=== PATIENT | female | born 1965 | race Caucasian/White ===

== ENCOUNTER 2019-07-08 15:51 | Observation (INO) ==
[2019-07-08] MEDS ORDERED: ASPIRIN PR ONE (15:57)
[2019-07-08] MEDS ORDERED: ASPIRIN PO ONE (15:57)
[2019-07-08] MEDS ORDERED: NORFLEX IV ONE (16:18)
[2019-07-08] MEDS ORDERED: LABETALOL IV ONE (16:18)
[2019-07-08] MEDS ORDERED: TORADOL IV ONE (16:18)
[2019-07-08] MEDS ORDERED: ZOFRAN IV ONE ×3 (16:18→20:13)
[2019-07-08 16:25] LABS: BASO# 0.02 X1000 (0.0-0.2); BASO% 0.2 % (0.0-0.8); EOS# 0.08 X1000 (0.0-0.7); HEMATOCRIT 39.5 % (37.0-47.0); IMM GRAN# 0.01 X1000 (0.0-0.04); IMM GRAN% 0.1 % (0.0-0.5); LYMPH# 2.98 X1000 (1.2-3.4); LYMPH% 36.4 % (20.5-51.1); MCH 28.2 PG (27-31); MCHC 32.9 g/dL (33-37); MCV 85.7 FL (81-99); MONO# 1.01 X1000 (0.11-0.59); MONO% 12.3 % (1.7-9.3); MPV 9.1 FL (7.4-10.4); NEUT# 4.08 X1000 (1.4-6.5); PLT 327 X1000 (130-400); RBC 4.61 XMIL (4.2-5.4); RDW 12.7 % (11.5-14.5); WBC 8.18 X1000 (4.8-10.8)
--- NOTE | 2019-07-08 16:35 | Diag Imaging Result Doc PS360 ---
EXAM: CHEST-2 VIEWS 07/08/2019 HISTORY: chest pain TECHNIQUE: PA and lateral chest COMMENT: The heart size is at the upper limits of normal. The lungs are clear and unchanged in appearance compared to 10/13/2018. There may be some hyperinflation of the lungs consistent with COPD. IMPRESSION: Borderline cardiomegaly and COPD. Electronically signed by Arron Muniz 07/08/2019 4:33 PM
[2019-07-08 16:37] LABS: INR 0.89; PROTIME 12.5 Seconds (11.0-16.0)
[2019-07-08 16:38] LABS: PTT 32.1 Seconds (22.3-41.8)
--- NOTE | 2019-07-08 16:38 | EKG Report ---
Test Performed on : 07/08/2019 4:01:44 PM Test Reason : chest pain Blood Pressure : / mmHG Vent. Rate : 089 BPM Atrial Rate : 089 BPM P-R Int : 160 ms QRS Dur : 076 ms QT Int : 350 ms P-R-T Axes : 066 014 006 degrees QTc Int : 425 ms Normal sinus rhythm. Nonspecific ST abnormality Abnormal ECG When compared with ECG of 22-AUG-2016 22:58, T wave amplitude has increased in Anterior leads Unconfirmed Result
[2019-07-08 16:45] LABS: ALBUMIN 4.5 g/dL (3.5-5.0); CALCIUM 9.9 mg/dL (8.8-10.2); POTASSIUM 3.9 mmol/L (3.5-5.1); TOTAL BILIRUBIN 0.5 mg/dL (0.20-1.00); TOTAL PROTEIN 7.7 g/dL (6.3-8.3)
[2019-07-08 17:13] LABS: CK INDEX 2.8 (0.0-2.5); CK-MB 5.35 ng/mL (0.0-5.0)
[2019-07-08] MEDS ORDERED: APRESOLINE IV ONE (18:12)
[2019-07-08] MEDS ORDERED: MORPHINE IV ONE (18:12)
--- NOTE | 2019-07-08 18:12 | PROVIDER DOCUMENTATION ---
This chart was entered by Chantelle Agudelo Scribe, acting as scribe for Ryland Serrano MD. HPI-Chest Pain - General Source: patient - History of Present Illness-CP Location: reports: other (left side) Chest Pain Radiation: reports: neck (left) Quality of Pain: reports: aching Severity in ED: mild Onset/Duration: 5 days ago Timing: still present Context/Activities at Onset: reports: light activity Modifying Factors: worse with: movement Associated Symptoms: reports: denies symptoms Similar Symptoms Previously?: Yes Recently Seen Here or By Another Healthcare Provider: No <Ryland Serrano - Last Filed: 07/08/19 18:18> <Sandeep Joseph - Last Filed: 07/08/19 22:15> - General Chief Complaint: Chest Pain Stated Complaint: CP-L SHOULDER PAIN Time Seen by Provider: 07/08/19 16:09 Allergies/Adverse Reactions: Patient Allergies Allergy/AdvReac Type Severity Reaction Status Date / Time No Known Allergies Allergy Verified 10/13/18 15:02 Home Medications: Home Medication List Medication Instructions Recorded Confirmed Last Taken Type Losartan/Hctz [Hyzaar 100/12.5 mg 1 tab PO DAILY 10/13/18 10/13/18 10/13/18 History Tab] Methylprednisolone [Medrol Dosepak] 4 mg PO DIRECTED #1 pkg 10/13/18 Unknown Rx Naproxen Sodium [Anaprox Ds] 550 mg PO Q12H PRN #20 tab 10/13/18 Unknown Rx - History of Present Illness-CP Nature of Presenting Problem: Patient is a 54 year old female who presents with left side chest pain. States chest pain radiates to left side neck. Reports pain has been present for 5 days. Denies nausea, vomiting, shortness of breath and diaphoresis. (Ryland Serrano) Review of Systems - Adult - REVIEW OF SYSTEMS - ADULT Constitutional: reports: no symptoms reported Eyes: reports: no symptoms reported Ears, Nose, Mouth & Throat: reports: no symptoms reported Cardiovascular: reports: see HPI, chest pain. denies: irregular heart rate, palpitations Respiratory: reports: no symptoms reported. denies: cough, shortness of breath, wheezing Gastrointestinal: reports: no symptoms reported. denies: abdominal pain, nausea, vomiting Genitourinary: reports: no symptoms reported Musculoskeletal: reports: see HPI, neck pain (left). denies: back pain, muscle aches Integumentary: reports: no symptoms reported Neurological: reports: no symptoms reported Psychiatric: reports: no symptoms reported Endocrine: reports: no symptoms reported Hematologic/Lymphatic: reports: no symptoms reported Allergic/Immunologic: reports: no symptoms reported All Other Systems: Reviewed and Negative <Ryland Serrano - Last Filed: 07/08/19 18:18> Past History - Adult - PAST MEDICAL HISTORY-ADULT Review of Records: reports: Old Records Reviewed, Nursing Assessment Review, Medications Reviewed, Social history reviewed & non-contributory. Major Childhood Illnesses: reports: denies history Cardiovascular: reports: HTN Respiratory: reports: denies history Gastrointestinal: reports: GERD Obstetrical/Gynecological: reports: denies history Genitourinary: reports: denies history Musculoskeletal: reports: denies history Neurological: reports: headaches/migraines Psychiatric: reports: denies history Endocrine/Immune: reports: denies history Other Conditions: reports: denies history - PRIOR SURGERIES/PROCEDURES Surgical/Procedure History: reports: BTL - PRIOR HOSPITALIZATIONS Prior Hospitalizations: reports: none - IMMUNIZATION STATUS Childhood Immunizations: See Nurse Assessment Flu Vaccine: See Nurse Assessment - FAMILY HISTORY Family History: reviewed, not pertinent - SOCIAL HISTORY Smoking: denies Substance Use: denies <Ryland Serrano - Last Filed: 07/08/19 18:18> Physical Exam-General - PHYSICAL EXAM-ADULT Initial Vital Signs Reviewed: Yes - CONSTITUTIONAL General Appearance: alert, no apparent distress. negative: lethargic - HEAD, EARS, NOSE, MOUTH & THROAT HENMT: normocephalic/atraumatic, moist mucous membranes. negative: angioedema - RESPIRATORY Respiratory: lungs clear, normal breath sounds, other (left anterior chest wall tenderness. reproducible with palpation). negative: crackles, stridor, wheezing - CARDIOVASCULAR Cardiovascular: normal peripheral pulses, regular rate, rhythm. negative: tachycardia - GASTROINTESTINAL (ABDOMEN) Abdominal Exam: normal bowel sounds, non tender, soft. negative: guarding, rigid - MUSCULOSKELETAL Extremity: non-tender, normal inspection. negative: deformity, erythema - SKIN Integumentary: normal color, normal turgor, warm/dry. negative: diaphoresis, rash - NEUROLOGIC Neurologic: grossly normal. negative: aphasia, facial droop - PSYCHIATRIC Psych/Mental Status: normal mood/affect, oriented x 3. negative: anxious <Ryland Serrano - Last Filed: 07/08/19 18:18> - HEART Score HEART Score: History: Slightly Suspicious HEART Score: ECG: Normal HEART Score: Age: 45-65 Years HEART Score: Risk Factors for Atherosclerotic Disease: 1 or 2 Risk Factors HEART Score: Troponin: < or = Normal Limit Total HEART Score:: 2 <Ryland Serrano - Last Filed: 07/08/19 18:18> Progress - PLAN OF CARE/RESULTS Result Diagrams: 07/08/19 16:05 07/08/19 16:05 - REASSESSMENT Reassessment #1 Time Reassessed: 18:11 Status: improving (minimally improved with pain meds. Given labetalol IV for HTN. Will check second set of CE as CKMB was a little elevated, but troponin was negative.) - EKG 1 Time of EKG reading by physician:: 16:01 EKG Read and Signed by:: Ryland Serrano EKG Interpretation (*Must complete 3 of following elements*): Abnormal Rate: 89 Rhythm: normal sinus rhythm [place]: normal [place] Interval: normal Comments: nonspecific ST abnormality. - XRAY 1 XRAY Study: Chest Impression: Abnormal, See EMR Report ( EXAM: CHEST-2 VIEWS 07/08/2019 HISTORY: chest pain TECHNIQUE: PA and lateral chest COMMENT: The heart size is at the upper limits of normal. The lungs are clear and unchanged in appearance compared to 10/13/2018. There may be some hyperinflation of the lungs consistent with C OPD. IMPRESSION: Borderline cardiomegaly and COPD. Electronically signed by Arron Muniz 07/08/2019 4:33 PM 07/08/19 1633 Interpreting Physician: Arron Muniz MD Dictated Date/Time: 07/08/19 1632 cc: Ryland Serrano MD; None,PCP) - CHANGE OF SHIFT REPORT (ED Provider) 1 Report Given and Care Transferred to:: Jake Time of Transfer: 19:00 Items Pending: Labs (second set of Arthur), CT/MRI Results, Pain Control <Ryland Serrano - Last Filed: 07/08/19 18:18> - PLAN OF CARE/RESULTS Result Diagrams: 07/08/19 16:05 07/08/19 16:05 - CONSULTS/PCP/HOSPITALIST Notification #1 *Consult/PCP/Hospitalist*: Dr Bess, Cardiology Time Discussed: 22:13 (Transfer to [facility]) <Sandeep Joseph - Last Filed: 07/08/19 22:15> - PLAN OF CARE/RESULTS Progress/Plan/Lab Results: Vital Signs - 8 hr 07/08/19 15:52 07/08/19 16:32 07/08/19 21:01 Temperature 97.7 F 98.3 F Pulse Rate 87 66 52 L Respiratory Rate 20 20 10 L Blood Pressure 197/124 151/94 66/42 O2 Sat by Pulse Oximetry 99 98 93 L Laboratory Results - last 24 hr 07/08/19 07/08/19 07/08/19 16:05 16:05 16:05 WBC 8.18 RBC 4.61 Hgb 13.0 Hct 39.5 MCV 85.7 MCH 28.2 MCHC 32.9 L RDW Std Deviation 12.7 Plt Count 327 MPV 9.1 Immature Gran % (Auto) 0.1 Neut % (Auto) 50.0 Lymph % (Auto) 36.4 [place] % (Auto) 12.3 H Eos % (Auto) 1.0 Baso % (Auto) 0.2 Immature Gran # (Auto) 0.01 Neut # (Auto) 4.08 Lymph # (Auto) 2.98 [place] # (Auto) 1.01 H Eos # (Auto) 0.08 Baso # (Auto) 0.02 PT INR PTT (Actin FS) Sodium 139 Potassium 3.9 Chloride 104 Carbon Dioxide 24 L Anion Gap 11 BUN 15 Creatinine 1.0 H Estimated GFR/1.73 m2 57 BUN/Creatinine Ratio 15 Glucose 97 Calculated Osmolality 278 Calcium 9.9 Total Bilirubin 0.50 AST 23 ALT 26 Alkaline Phosphatase 109 H Creatine Kinase 192 H Creatine Kinase Index 2.8 H CK-MB (CK-2) 5.35 H Troponin T Eeo-D-Ixhutjddrpz Pept 25 Total Protein 7.7 Albumin 4.5 Globulin 3.0 Albumin/Globulin Ratio 1.0 07/08/19 07/08/19 07/08/19 16:05 16:05 19:00 WBC RBC Hgb Hct MCV MCH MCHC RDW Std Deviation Plt Count MPV Immature Gran % (Auto) Neut % (Auto) Lymph % (Auto) [place] % (Auto) Eos % (Auto) Baso % (Auto) Immature Gran # (Auto) Neut # (Auto) Lymph # (Auto) [place] # (Auto) Eos # (Auto) Baso # (Auto) PT 12.5 INR 0.89 PTT (Actin FS) 32.1 Sodium Potassium Chloride Carbon Dioxide Anion Gap BUN Creatinine Estimated GFR/1.73 m2 BUN/Creatinine Ratio Glucose Calculated Osmolality Calcium Total Bilirubin AST ALT Alkaline Phosphatase Creatine Kinase 186 H Creatine Kinase Index 2.5 CK-MB (CK-2) 4.74 Troponin T < 0.010 Nse-L-Pptbaasqypl Pept Total Protein Albumin Globulin Albumin/Globulin Ratio 07/08/19 19:00 WBC RBC Hgb Hct MCV MCH MCHC RDW Std Deviation Plt Count MPV Immature Gran % (Auto) Neut % (Auto) Lymph % (Auto) [place] % (Auto) Eos % (Auto) Baso % (Auto) Immature Gran # (Auto) Neut # (Auto) Lymph # (Auto) [place] # (Auto) Eos # (Auto) Baso # (Auto) PT INR PTT (Actin FS) Sodium Potassium Chloride Carbon Dioxide Anion Gap BUN Creatinine Estimated GFR/1.73 m2 BUN/Creatinine Ratio Glucose Calculated Osmolality Calcium Total Bilirubin AST ALT Alkaline Phosphatase Creatine Kinase Creatine Kinase Index CK-MB (CK-2) Troponin T < 0.010 Ztc-I-Ktffmbvczaa Pept Total Protein Albumin Globulin Albumin/Globulin Ratio Orders Category Date Time Status Cardiac Monitoring DIRECTED Care 07/08/19 15:58 Active Nursing- Obtain EKG once Care 07/08/19 18:09 Active Oxygen Therapy- ED Nursing DIRECTED Care 07/08/19 15:58 Active Saline Loc NOW Care 07/08/19 15:58 Active CHEST-2 VIEWS [RAD] Stat Exams 07/08/19 15:58 Completed CTA [CT ANGIOGRM PULMONARY ARTERIES] [CT] Stat Exams 07/08/19 16:17 Completed CBC WITH ELECTRONIC DIFF [HEME] Stat Lab 07/08/19 16:05 Completed CK PROFILE [SP CHEM] Stat Lab 07/08/19 16:05 Completed CK PROFILE [SP CHEM] Stat Lab 07/08/19 19:00 Completed COMPREHENSIVE METABOLIC PANEL [CHEM] Stat Lab 07/08/19 16:05 Completed PRO B-NATRIURETIC PEPTIDE Stat Lab 07/08/19 16:05 Completed PROTIME WITH INR [COAG] Stat Lab 07/08/19 16:05 Completed PTT [COAG] Stat Lab 07/08/19 16:05 Completed TROPONIN T Stat Lab 07/08/19 16:05 Completed TROPONIN T Stat Lab 07/08/19 19:00 Completed Aspirin Med 07/08/19 15:57 Discontinued 300 mg WI NOW ONE Aspirin Med 07/08/19 15:57 Discontinued 325 mg PO NOW ONE Hydralazine [Apresoline] Med 07/08/19 18:12 Discontinued 10 mg IV NOW ONE Ketorolac [Toradol] Med 07/08/19 16:18 Discontinued 30 mg IV NOW ONE Labetalol Med 07/08/19 16:18 Discontinued 20 mg IV NOW ONE Morphine Med 07/08/19 18:12 Discontinued 4 mg IV NOW ONE Ondansetron [Zofran] Med 07/08/19 16:18 Discontinued 4 mg IV NOW ONE Ondansetron [Zofran] Med 07/08/19 18:12 Discontinued 4 mg IV NOW ONE Ondansetron [Zofran] Med 07/08/19 20:13 Discontinued 4 mg IV NOW ONE Orphenadrine [Norflex] Med 07/08/19 16:18 Discontinued 60 mg IV NOW ONE CP/SOB/Palp >45 yrs of Age Stat Oth 07/08/19 15:57 Ordered EKG [EKG] Stat Ther 07/08/19 15:58 Draft EKG [EKG] Stat Ther 07/08/19 18:09 Ordered Departure - Departure Certified Medical Emergency: Emergent - Critical Care Note This patient required my direct & personal management of CC.: Yes Total Time (mins): 45 Critical Care Statement: This patient required my direct personal management to treat or rule out processes, the absence of which, could potentiallly result in sudden, clinically significant life or limb threatening deterioration. <Ryland Serrano - Last Filed: 07/08/19 18:18> - Departure Date of Disposition Decision: 07/08/19 Time of Disposition Decision: 22:14 Certified Medical Emergency: Emergent <Sandeep Joseph - Last Filed: 07/08/19 22:15> - Departure DIAGNOSIS: Chest pain of uncertain etiology, Hypertensive urgency Disposition: [facility] 02 Condition: Fair Referrals and Follow-Ups: None,PCP [Primary Care Provider] - Attestation - Physician/ YASMIN Attestation Patient care was provided by Advanced Practice Provider:: No The physician spent face to face time with patient:: Yes Advanced Practice Provider documentation review:: Supervising physician onsite and consulted in the evaluation and care of this patient. The physician did have a face to face encounter with the patient. <Ryland Serrano - Last Filed: 07/08/19 18:18> - Physician/ YASMIN Attestation Patient care was provided by Advanced Practice Provider:: No The physician spent face to face time with patient:: Yes Advanced Practice Provider documentation review:: Supervising physician onsite and consulted in the evaluation and care of this patient. The physician did have a face to face encounter with the patient. <Sandeep Joseph - Last Filed: 07/08/19 22:15> This chart was documented by the indicated scribe, (Chantelle Agudelo Scribe) and accurately reflects the services I performed and decisions made by , Ryland Serrano MD, as attested by the provider's signature.
--- NOTE | 2019-07-08 18:15 | Diag Imaging Result Doc PS360 ---
EXAM: CT ANGIOGRM PULMONARY ARTERIES 07/08/2019 HISTORY: left sided CP TECHNIQUE: This exam was performed using automated exposure control, adjustment of mA or kV according to patient size, and/or use of iterative reconstruction technique. COMMENT: 3-D MIPS were performed. There are no filling defects in the pulmonary arteries. There is some apparent adrenal hyperplasia particularly on the left. The aorta is normal in caliber without evidence of dissection. There is some fluid in the esophagus which may be indicative of reflux. There is minimal bibasilar atelectasis. No focal consolidation to suggest pneumonia is present. The regional skeleton appears to be intact. There are no abnormal fluid collections. IMPRESSION: No evidence of pulmonary emboli. Possible gastroesophageal reflux. Electronically signed by Arron Muniz 07/08/2019 6:13 PM
[2019-07-08 21:48] LABS: CK INDEX 2.5 (0.0-2.5); CK-MB 4.74 ng/mL (0.0-5.0)
--- NOTE | 2019-07-08 22:11 | ED EKG INTERP ---
This chart was entered by Susan Hensley Scribe, acting as scribe for Sandeep Joseph DO. EKG Interpretation - EKG Time of EKG reading by physician:: 18:53 EKG Read and Signed by:: Sandeep Joseph EKG Interpretation (*Must complete 3 of following elements*): Abnormal (NSR, Septal infarct, age undetermined. Abnormal ECG) Rate: 63 Rhythm: NSR [place]: normal QRS: normal Attestation - Physician/ YASMIN Attestation Patient care was provided by Advanced Practice Provider:: No The physician spent face to face time with patient:: Yes Advanced Practice Provider documentation review:: Supervising physician onsite and consulted in the evaluation and care of this patient. The physician did have a face to face encounter with the patient. This chart was documented by the indicated scribe, (Susan Hensley Scribe) and accurately reflects the services I performed and decisions made by Jake hoff Thomas E., DO, as attested by the provider's signature.
[2019-07-08] MEDS ORDERED: TYLENOL PO PRN (22:34)
[2019-07-08] MEDS ORDERED: MORPHINE IV PRN (22:34)
[2019-07-08] MEDS ORDERED: ZOFRAN IV PRN (22:34)
[2019-07-08] MEDS ORDERED: NS 1,000 ML IV ONE (22:34)
--- NOTE | 2019-07-08 23:33 | EKG Report ---
Test Performed on : 07/08/2019 6:53:27 PM Test Reason : this is a repeat Blood Pressure : / mmHG Vent. Rate : 063 BPM Atrial Rate : 063 BPM P-R Int : 150 ms QRS Dur : 076 ms QT Int : 426 ms P-R-T Axes : 039 007 007 degrees QTc Int : 435 ms Normal sinus rhythm. Septal infarct , age undetermined Abnormal ECG When compared with ECG of 08-JUL-2019 16:01, (Unconfirmed) No significant change was found Unconfirmed Result
[2019-07-09] MEDS ORDERED: NITROGLYCERIN SL PRN (05:42)
[2019-07-09] MEDS ORDERED: SALINE LOCK IV FLUID XX ONE (05:42)
[2019-07-09] MEDS ORDERED: ZOFRAN IV PRN (05:42)
[2019-07-09] MEDS ORDERED: MORPHINE IV PRN (05:44)
[2019-07-09] MEDS ORDERED: LOVENOX SUBQ SCH (05:45)
--- NOTE | 2019-07-09 06:22 | HISTORY AND PHYSICAL ---
PRIMARY CARE PHYSICIAN: Dr. Weber. CHIEF COMPLAINT: Chest pain. HISTORY OF PRESENTING ILLNESS: A 54-year-old female with a history of hypertension, who had initially presented to [facility] with complaint of chest pain. She described it as a soreness, and rated the pain about a 7/10 and states the pain was persistent. The patient states that she was also nauseated, and states the pain was radiating to her neck and left upper extremity. Her case was discussed with Cardiology, who recommended the patient be transferred to [facility] for further management. While the patient was evaluated, it was noted that her CK and CK-MB were elevated. At the time of my examination, patient denied any headache, fever, chills, hemoptysis, melena, or weight changes, but complained of chest pain. PAST MEDICAL HISTORY: Includes hypertension. PAST SURGICAL HISTORY: None. ALLERGIES: No known drug allergies. CURRENT MEDICATIONS: Include losartan, HCT, and naproxen. SOCIAL HISTORY: No history of smoking, alcohol or illicit drug use. FAMILY HISTORY: Positive for coronary disease in mother and father. REVIEW OF SYSTEMS: Fourteen point review of systems as in HPI. Other systems negative. PHYSICAL EXAMINATION: GENERAL: Cooperative, friendly female. She is resting more comfortably now. VITAL SIGNS: Temperature 98 degrees, pulse 64, respirations 18, and blood pressure 117/64. HEENT: Atraumatic, normocephalic. Extraocular movements intact. PERRLA. NECK: Supple. CHEST: Clear to auscultation. CARDIOVASCULAR: Regular rate and rhythm. S1, S2. ABDOMEN: Soft. Positive bowel sounds. EXTREMITIES: No edema. NEUROLOGIC: She is awake, alert, and oriented x3. : No bladder distention. SKIN: Warm. LABORATORIES AND STUDIES: WBCs 8.18, hemoglobin 13.2, hematocrit 39.5, and platelets 327,000. Sodium 139, potassium 3.9, chloride 104, CO2 24, BUN 15, creatinine is 1.0, glucose is 97, alkaline phosphatase 109, creatine kinase 192, creatine kinase index 2.8, CK-MB 5.35 and troponin 0.010. ASSESSMENT: A 54-year-old female with a history of hypertension, who had initially presented to [facility] due to patient having a persistent ongoing chest pain. She was evaluated there, and it was suspected possibly she had acute coronary syndrome. Her case was discussed with Cardiology, who recommended transfer to [facility] for further evaluation, and management. 1. Acute coronary syndrome. 2. Hypertension. PLAN: 1. We will admit patient to medical floor with telemetry. 2. Continue with cardiac workup. Check EKG and serial cardiac enzymes. Have patient continue on aspirin. We will use sublingual nitroglycerin and morphine p.r.n. chest pain. 3. We will consult Cardiology. 4. We will monitor blood pressure closely. Resume antihypertensive agents. 5. Place patient on DVT prophylaxis with Lovenox. 6. We will continue to follow and reassess. Make further recommendations based on the patient's clinical course. cc: Quentin Wilde MD
[2019-07-09] MEDS ORDERED: PRILOSEC PO SCH (07:00)
[2019-07-09] MEDS ORDERED: HYZAAR 100/12.5 MG TAB PO SCH (09:00)
[2019-07-09] MEDS ORDERED: ASPIRIN PO SCH (09:00)
[2019-07-09] MEDS: TYLENOL PO PRN ×2 (09:16→15:01)
--- NOTE | 2019-07-09 11:31 | PROGRESS NOTE ---
DATE: 07/09/2019 SUBJECTIVE: The patient says she is feeling better right now. She describes what she had was some chest pain, was left anterior chest up to her shoulder. She has also had left neck pain. This is actually been going on for about a week. She did get nauseated with it but did not have any diaphoresis or shortness of breath. She went to the emergency room. They did CPK enzymes and troponins. The CPKs were slightly elevated but the troponins were normal. EKG shows no acute changes and she had serial EKGs that showed no changes. There was poor R-wave progression in leads V1 through V3. OBJECTIVE: Vital Signs: Blood pressure 148/68, respirations 16, pulse 60, temperature 98.5 degrees Fahrenheit. Oxygen saturation on room air is 100%. HEENT: She is normocephalic. EOMS intact. PERRLA. Throat clear. Lungs: Clear to auscultation and percussion without rhonchi, rales, or wheezes. Heart: Regular rate and rhythm without murmurs, gallops, friction rubs. Abdomen: Soft. Active bowel sounds. No organomegaly or tenderness. Neurological: Intact grossly. Musculoskeletal: The patient is tender to palpation over the posterior neck muscles and the cervical spine. She also hurts when she raises her left shoulder and arm. She is tender over the pectoralis muscle on the left. Most of this sounds more musculoskeletal than cardiovascular, but of course, with the elevated CPK enzymes, for caution we will rule out ID. Her troponins have been negative. Cardiology has been consulted. I will go ahead and get a CT scan of her cervical spine and thoracic spine. ASSESSMENT: 1. Chest pain, somewhat atypical for cardiac. 2. Elevated CPK enzymes but normal troponins. 3. Strong family history of vascular disease. PLAN: CT scan of the C-spine and T-spine and Cardiology consult. cc: MD Prakash Antoine Jr, MD
--- NOTE | 2019-07-09 12:56 | Diag Imaging Result Doc PS360 ---
EXAM: CT C-SPINE/T-SPINE W/O CONTRAS HISTORY: neck pain TECHNIQUE: 1. CT cervical spine without contrast 2. CT thoracic spine without contrast COMPARISON: None. FINDINGS: Cervical spine: There is good alignment to the cervical spine. No precervical soft tissue swelling. No subluxation. No fracture. No disc herniation identified. Thoracic spine: Mild scoliosis. There are small degenerative bone spurs in the mid and lower thoracic spine. No subluxation. No fracture. No disc herniation identified. IMPRESSION: Cervical spine: No acute fracture Thoracic spine: No acute fracture This exam was performed using automated exposure control, adjustment of mA or kV according to patient size, and/or use of iterative reconstruction technique. Electronically signed by Varinder Freire 07/09/2019 12:53 PM
--- NOTE | 2019-07-09 13:55 | CARDIOLOGY CONSULTATION ---
DATE: 07/09/2019 CHIEF COMPLAINT: Neck pain and arm pain associated with movement of the neck and arm. HISTORY OF PRESENT ILLNESS: Ms Bassett is a 54-year-old female with a history of hypertension, who presents with complaints as detailed above. The patient reports this episode happened last Thursday and has been happening constantly with no abatement since then. There is no exertional component associated with just walking. It is exacerbated by movements of her neck as well as movements of her left arm. She denies any overt injuries to those areas. There is tenderness when she pushes on the back of her neck. She has had no previous heart history. She does not smoke. PAST MEDICAL HISTORY: Significant for hypertension. SOCIAL HISTORY: No tobacco use. 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 FAMILY HISTORY: Significant for coronary disease in her parents. REVIEW OF SYSTEMS: A 10 system review of systems is negative except for those things mentioned in HPI. PHYSICAL EXAMINATION: Vital signs: She is afebrile. Her heart rate is 60, blood pressure 148/68. General: She is in no acute distress. HEENT: Oropharynx is moist. Poor dentition. Eye examination shows pink conjunctivae, white sclerae. Neck: Shows no obvious thyromegaly or thyroid tenderness. Cardiovascular: She sounds to be in a regular rate and rhythm. She has no obvious murmurs. She has no S3. She has no lower extremity edema. Chest: Clear to auscultation bilaterally. She has no increased work of breathing. Abdomen: Soft, nontender, nondistended. She has no obvious organomegaly. Skin: Warm and dry throughout without any rashes. Neurological: She is moving all extremities well. She has no lateralizing deficits. Musculoskeletal: Notably, she was tender to palpation along the posterior aspect of her paraspinous muscles in her neck. DATA: Her CT scan of her chest shows no evidence of PE, possible evidence of gastroesophageal reflux disease. She had a CT of her cervical and thoracic spine which essentially showed no evidence of acute fractures. Her EKG on presentation on the at 16:01 shows sinus rhythm, no specific changes, no ischemic changes. Subsequent EKG on the at 18:53 shows sinus rhythm, no ischemic changes. LABORATORY DATA: Shows a white count 8.1, her hematocrit is 39, her platelet count is 327,000. Her BUN and creatinine are 15 and 1.0 respectively. Her cardiac enzymes are negative times multiple sets including her CKs, CK-MBs. ASSESSMENT: Ms Bassett is a 54-year-old female who presented with atypical neck and shoulder pain. PLAN: Her pain sounds profoundly musculoskeletal nature. She has an unremarkable EKG and negative cardiac enzymes. She has no exertional component with the except of movements of her upper extremity. I would be happy to see her in follow-up as an outpatient. She reports that she was told that she had an enlarged heart. She had borderline cardiomegaly on her chest x-ray. There was no mention of cardiomegaly on the CT. Likely, this was an overcall based on the study. I would be happy to see her in follow-up if primary team feels I need to do so. cc: MD Prakash Johnson MD
[2019-07-09 14:33] VITALS: BP 128/68
[2019-07-09] MEDS ORDERED: SOLU-MEDROL IV ONE (14:52)
--- NOTE | 2019-07-10 14:15 | DISCHARGE SUMMARY ---
ADMISSION DATE: 07/08/2019 DISCHARGE DATE: 07/09/2019 FINAL DIAGNOSES: 1. Chest pain. Cardiac ruled out. This is more typical of chest wall pain. 2. Elevated CPK enzymes, but troponin is normal. 3. Family history of vascular disease. 4. Neck pain. MEDICATIONS: The patient will be discharged home on her regular home medications. I did give her some Solu-Medrol IV. HISTORY OF PRESENT ILLNESS: The patient presented initially to [facility] with complaint of chest pain. Described more as a soreness and rated the pain about 7/10. She was also nauseated but did not have any diaphoresis or shortness of breath. Says the pain was radiating to her neck and upper extremity. Cardiology at that time suggested that she be [facility]. When I saw her, she was more tender over the pectoralis muscles and to her left shoulder. She has a little tenderness in her left posterior neck muscles. I felt like this was musculoskeletal. Possibly could have cervical disk disease. I did a CT scan of her cervical area and thoracic area, and just a plain CT scan without contrast was essentially normal. I did give her some Solu-Medrol while she was here in the hospital. Her troponins were all negative. Cardiology felt like this was not cardiac in nature once they had seen the patient. I had seen her earlier in the day, and then she decided that she wanted go home after Cardiology came by to see her. She did have a pulmonary arteriogram that was normal. Cardiology did not recommend inpatient stress test or any further workup at this time but said that they will be glad to see her as an outpatient. Her earlier exam today showed that she was tender over the area as I mentioned above, otherwise was fairly normal. Nurse later called me and said the patient decided she wanted to go ahead and go home, so we discharged her. She will follow up with her primary care physician next week. cc: Harvey Aldrich Jr, MD
== END 2019-07-09 17:13 | disposition home or self-care (01) ==
LOC: P.ED 15:51 → INTOOBSV 15:52 → SUATTDRO 15:52 → 3N 07-09 00:53
PROVIDERS: ADMIT Emergency Medicine; ATTEND Emergency Medicine